=== PATIENT | male | born 1955 | race Caucasian/White ===

== ENCOUNTER 2021-07-17 20:38 | Emergency (ER) | payer MEDICARE, OTHER ==
[~2021-07-17] VITALS: Ht 172.7 cm; Wt 81.6 kg
[2021-07-18] MEDS ORDERED: LORazepam 2MG/ML-1ML VIAL ONE (00:13)
[2021-07-18] MEDS ORDERED: LORazepam 2MG/ML-1ML VIAL IM ONE (00:15)
[2021-07-18 10:19] VITALS: BP 166/67
== END 2021-07-18 14:26 | disposition home or self-care (01) ==
LOC: ER 20:38 → EDBD 20:38 → ER 07-18 14:26
DX: S01.01XA Laceration without foreign body of scalp, initial encounter (principal); I10 Essential (primary) hypertension; E11.9 Type 2 diabetes mellitus without complications; E03.9 Hypothyroidism, unspecified; W19.XXXA Unspecified fall, initial encounter; Y93.89 Activity, other specified; Y92.89 Other specified places as the place of occurrence of the external cause; Y99.8 Other external cause status
CPT/HCPCS: 12002; 70450; 82962; 93005; 96372; 99285; J2060